=== PATIENT | female | born 1955 | race Hispanic/Latino ===

== ENCOUNTER → 2021-04-20 | Outpatient (CLI) | payer OTHER | END | disposition home or self-care (01) | LOC: RAH 15:53 | PROVIDERS: ATTEND Family Medicine | DX: Z12.31 Encounter for screening mammogram for malignant neoplasm of breast (principal) | CPT/HCPCS: 77067 ==

== ENCOUNTER → 2025-07-02 | Outpatient (CLI) | payer OTHER ==
[~2025-07-02] VITALS: Ht 149.9 cm; Wt 76.0 kg
[~2025-07-02] MED LIST: AMLO-257 PO; GLIM2TAB30 PO; HYDR25TA PO; INSU3INS3 SQ; LOSA50TA64 PO; SERT-440 PO; TAMO20TA4 PO
[2025-07-02 09:25] LABS: IMMATURE GRANULOCYTE ABSOLUTE 0.05 K/uL (0-1); NUCLEATED RED BLOOD CELLS 0.0 % (0.0-0.19); PLATELET COUNT (AUTO) 318 K/uL (130-400); RED BLOOD CELL COUNT(AUTO) 4.73 MIL/uL (4.00-5.50); RED CELL DISTRIBUTION WIDTH 13.8 % (11.0-15.5); WHITE BLOOD COUNT (AUTO) 9.4 K/uL (4.8-10.8)
[2025-07-02 09:44] LABS: ASPARTATE AMINOTRANSFERASE 38.0 U/L (10-37); CREATININE 1.0 mg/dL (0.5-1.0); GLOMERULAR FILTR. RATE CALC 61.0 mL/min (>90); GLUCOSE,RANDOM 175.0 mg/dL (70-105); SODIUM SERUM 139.0 mmol/L (136-145); TOTAL PROTEIN, SERUM 7.5 g/dL (6.0-8.3); UREA NITROGEN, BLOOD 25.0 mg/dL (7-18)
[2025-07-02 09:46] LABS: INR 1.02 (0.85-1.15)
--- NOTE | 2025-07-02 09:47 | EKG ---
[facility] Test Date: 2025-07-02 Test Time: 09:43:54 Pat Name: JOCELYNE ANNE Department: [facility] Room: Gender: F Executive Steward: [id number] : 1955 Requested By: SATISH SHANE Order Number: [id number] Reading MD: Wes Art Measurements Intervals [place] Rate: 78 P: 55 KS: 152 QRS: -36 QRSD: 88 T: 53 QT: 396 QTc: 451 Interpretive Statements Normal sinus rhythm Left axis deviation Moderate voltage criteria for LVH, may be normal variant No previous ECG available for comparison Electronically Signed On 07-02-2025 17:47:38 CDT by Wes Art Please click the below link to view image of tracing.
[2025-07-02 10:01] LABS: APPEARANCE,URINE CLOUDY (CLEAR); GLUCOSE, URINE (UA) NEGATIVE (NEGATIVE); LEUKOCYTE ESTERASE ,URINE 250 Leu/uL (NEGATIVE); NITRATE,URINE NEGATIVE (NEGATIVE); OCCULT BLOOD,URINE NEGATIVE (NEGATIVE)
[2025-07-02 10:05] LABS: ADD UA MICROSCOPIC YES
[2025-07-02 10:17] LABS: NON-SQUAMOUS EPITHELIAL CELL 2 /HPF (0-2); OTHER CASTS, URINE 1 /LPF (None Seen); SQUAMOUS EPITHELIAL CELL,UR RARE /HPF (0-2)
[2025-07-02 10:18] VITALS: BP 162/76; PULSE 77; RESP 18; TEMP 98.1
--- NOTE | 2025-07-10 08:38 | NUR ---
notified pt at [facility] [place] so mondays surgery cancelled. md office aware
== END ==
LOC: DAH 08:36 → EDSTATUS 07-13 08:00
PROVIDERS: ATTEND Student in an Organized Health Care Education/Training Program
DX: Z01.818 Encounter for other preprocedural examination (principal); C50.911 Malignant neoplasm of unspecified site of right female breast; I10 Essential (primary) hypertension; E11.9 Type 2 diabetes mellitus without complications; E78.00 Pure hypercholesterolemia, unspecified; Z90.49 Acquired absence of other specified parts of digestive tract; Z90.710 Acquired absence of both cervix and uterus; Z83.3 Family history of diabetes mellitus; Z82.49 Family history of ischemic heart disease and other diseases of the circulatory system
CPT/HCPCS: 93005; 80053; 85025; 85610; 85730; 87086 ×2; 87186; 81001; 36415; A6260; J0690; J0665